=== PATIENT | female | born 1945 | race Caucasian/White ===

== ENCOUNTER 2022-03-08 08:49 | Outpatient (CLI) | payer MEDICARE, BC, SELFPAY ==
--- NOTE | 2022-03-08 09:15 | CRLHL7_ITS ---
For Patients: As a result of the Century Cures Act, medical imaging exams and procedure reports are released immediately into your electronic medical record. You may view this report before your referring provider. If you have questions, please contact your health care provider. BILATERAL SCREENING MAMMOGRAM WITH COMPUTER-AIDED DETECTION TECHNIQUE: CC and MLO views were obtained. These mammographic images have been obtained using full-field digital technique. These mammographic images were interpreted with the benefit of computer-aided detection. COMPARISON FILM: 11/30/20, 09/01/19, 02/08/16 FINDINGS: There are scattered areas of fibroglandular density IMPRESSION: There is no radiographic evidence for malignancy. ASSESSMENT: BI-RADS Category 1: Negative RECOMMENDATION: Routine screening mammogram in 1 year. A lay language report of this examination will be provided to the patient. Leo Gill M.D. Diagnostic Radiologist [email or web address] [place]/Dictated by: Leo Gill MD @ 03/08/2022 11:52:00 AM (Electronically Signed)
== END 2022-03-08 08:50 | disposition home or self-care (01) ==
LOC: MAMMO 08:55
PROVIDERS: PCP Internal Medicine; Visit Provider Internal Medicine
DX: Z12.31 Encounter for screening mammogram for malignant neoplasm of breast (principal)
CPT/HCPCS: 77067

== ENCOUNTER 2024-05-06 14:30 | Outpatient (RCR) | payer MEDICARE, BC, SELFPAY | END 2024-09-03 23:59 | disposition home or self-care (01) | PROVIDERS: PCP Family Medicine; Visit Provider Family Medicine | DX: Z91.89 Other specified personal risk factors, not elsewhere classified (principal); Z51.89 Encounter for other specified aftercare | CPT/HCPCS: 97165; 97535 ==